=== PATIENT | male | born 1975 | race Caucasian/White ===

== ENCOUNTER 2021-01-22 16:28 | Emergency (ER) | payer BC, SELFPAY ==
[2021-01-22 16:51] LABS: Urine Blood Negative (Negative); Urine Glucose Negative (Negative); Urine Protein Negative (Negative); Urine Specific Gravity <=1.005 (1.005-1.030)
[2021-01-22 16:54] LABS: Basophils % 0.8 % (0-1.3); Hematocrit 50.5 % (39.6-49.0); Lymphocytes % 36.1 % (15.3-44.8); MPV 7.1 fL (7.6-11.3); RBC Red Blood Cell Count 5.51 M/uL (4.33-5.43)
[2021-01-22 17:01] LABS: Protime INR 0.98
[2021-01-22 17:04] LABS: Barbiturates NEGATIVE (NEGATIVE); Benzodiazepines NEGATIVE (NEGATIVE); Cocaine NEGATIVE (NEGATIVE); METHAMPHETAM NEGATIVE (NEGATIVE); Methadone NEGATIVE (NEGATIVE); Opiates NEGATIVE (NEGATIVE); Phencyclidine NEGATIVE (NEGATIVE); THC Cannibis NEGATIVE (NEGATIVE)
--- NOTE | 2021-01-22 17:09 | RAD REPORT ---
EXAM DESCRIPTION: CT - Head C Spine Mpr Wo Con - 01/22/2021 4:48 pm CLINICAL HISTORY: Head and neck injury status post fall. Head and neck pain COMPARISON: None. TECHNIQUE: Computed axial tomography of the head and cervical spine was obtained. Sagittal and coronal reconstruction was performed. All CT scans are performed using dose optimization technique as appropriate and may include automated exposure control or mA/KV adjustment according to patient size. FINDINGS: An intracranial bleed is not seen. The ventricles are normal in caliber. An extra-axial fl uid collection is not noted.Fluid within the visualized sinuses and mastoids is not seen. Mucus retention cyst left maxillary sinus A cervical fracture is not visualized. No dislocation is noted. Spondylosis involves the cervical spi ne IMPRESSION: No acute intracranial abnormality is seen. A cervical fracture is not visualized. If the patient continues to have symptoms to suggest intracra nial /spinal cord pathology then MRI would be recommended
[2021-01-22 17:18] LABS: ALT/SGPT 49 U/L (12-78); AST/SGOT 44 U/L (15-37); Albumin 3.9 g/dL (3.4-5.0); Alkaline Phosphatase 63 U/L (45-117); BUN Blood Urea Nitrogen 4 mg/dL (7-18); Bicarbonate 21 mmol/L (21-32); Bilirubin Direct 0.2 mg/dL (0-0.2); Bilirubin Total 0.5 mg/dL (0.2-1.0); Glucose Level 100 mg/dL (74-106); Potassium 3.8 mmol/L (3.5-5.1); Protein, Total 7.6 g/dL (6.4-8.2); Sodium Level 143 mmol/L (136-145)
--- NOTE | 2021-01-22 17:30 | ER ---
Nurse's Notes [facility] Name: Fran Ortiz Age: 46 yrs Sex: Male : 1975 Arrival Date: 01/22/2021 Time: 16:29 Bed 2 Private MD: Diagnosis: Presentation: 01/22 16:39 Chief complaint: EMS states: patients family called for a check on the patient. They ap3 were notified the patient had been sending text messages that do not make sense to the family. Patient reports that he fell down approx 15 concrete steps a month ago, and believes this is tied to that. Patient also reports to have had 4 large beers prior to arrival. Coronavirus screen: At this time, the client does not indicate any symptoms associated with coronavirus-19. Ebola Screen: No symptoms or risks identified at this time. Initial Sepsis Screen: Does the patient meet any 2 criteria? No. Patient's initial sepsis screen is negative. Does the patient have a suspected source of infection? No. Patient's initial sepsis screen is negative. Risk Assessment: Do you want to hurt yourself or someone else? Patient reports no desire to harm self or others. Onset of symptoms was January 19, 2021. 16:39 Method Of Arrival: EMS: [facility] ap3 16:39 Acuity: TIARA 3 ap3 Triage Assessment: 16:43 General: Appears in no apparent distress. Behavior is anxious, Smells of alcohol. Pain: ap3 Denies pain. EENT: Eyes glassy. Neuro: Level of Consciousness is awake, obeys commands, Oriented to person, place, time. Cardiovascular: Capillary refill < 3 seconds Patient's skin is warm and dry. Respiratory: Airway is patent Respiratory effort is even, unlabored, Respiratory pattern is regular, symmetrical. Historical: - Allergies: 16:42 No Known Allergies; ap3 - Home Meds: 16:42 None [Active]; ap3 - PMHx: 16:42 Hypertensive disorder; Anxiety; ap3 - Immunization history:: Client reports having NOT received the Covid vaccine. - Social history:: Smoking status: Patient reports the use of cigarette tobacco products, smokes one pack cigarettes per day. Patient uses alcohol, on a daily basis. claims drinking about a 6 pack/day. Screenin:44 Abuse screen: Denies threats or abuse. Nutritional screening: No deficits noted. ap3 Tuberculosis screening: No symptoms or risk factors identified. Fall Risk Fall in past 12 months (25 points). Secondary diagnosis (15 points) recent ETOH use. IV access (20 points). Ambulatory Aid- None/Bed Rest/Nurse Assist (0 pts). Gait- Impaired (20 pts.). Mental Status- Oriented to own ability (0 pts). Total Worley Fall Scale indicates High Risk Score (45 or more points). Fall prevention measures have been instituted. Side Rails Up X 2 Placed Close to Nursing Station Frequent Obs/Assessments Occuring As available patient and family educated on Fall Prevention Program and Strategies. Assessment: 17:30 Reassessment: patient was found to not be in the room upon nurses arrival to administer ap3 ordered medications. IV is noted to be intact on the bed. Also found was the patients ID on the bed. Charge nurse and provider notified. Ativan was not given. Full 2mg was wasted with YOLANDA Monzon as witness. Vital Signs: 16:39 BP 160 / 119; Pulse 112; Resp 18; Pulse Ox 99% on R/A; Weight 80.74 kg; Height 5 ft. 11 ap3 in. (180.34 cm); 16:39 Body Mass Index 24.83 (80.74 kg, 180.34 cm) ap3 ED Course: 16:29 Patient arrived in ED. am2 16:30 Antwan Martino PA is PHCP. cp 16:32 Iron Denson MD is Attending Physician. cp 16:39 Rylee Spears RN is Primary Nurse. ap3 16:41 Triage completed. ap3 16:41 Arm band placed on right wrist. Patient patient placed in [facility]-Color. ap3 16:[address] ap3 16:45 Patient has correct armband on for positive identification. Bed in low position. Call ap3 light in reach. Side rails up X2. Pulse ox on. NIBP on. Door closed. Noise minimized. 16:48 CT Head C Spine In Process Unspecified. EDMS Administered Medications: 16:58 Drug: NS 0.9% 1000 ml Route: IV; Rate: 1 bolus; Site: right forearm; ap3 Outcome: 17:29 Patient left the ED. ll1 Signatures: Dispatcher [employer] EDMS Antwan Martino PA PA cp Moreno, Amanda am2 Rylee Spears, RN RN ap3 Stephan Berumen RN RN ll1
[2021-01-22 17:42] VITALS: BP 160/119; O2SAT 99
[2021-01-22] MEDS ORDERED: NICOTINE 21 MG/PAT TD ONE (17:49)
[2021-01-22] MEDS ORDERED: LORazepam 2 MG/ML VIAL ONE (17:50)
--- NOTE | 2021-01-23 17:29 | EDPHYS ---
Physician Documentation [facility] Name: Fran Ortiz Age: 46 yrs Sex: Male : 1975 Arrival Date: 01/22/2021 Time: 16:29 Bed 2 Private MD: ED Physician Iron Denson HPI: 01/22 16:40 This 46 yrs old Male presents to ER via EMS with complaints of Fall Injury. cp 16:40 Details of fall: The patient fell from a height, down approximately 15 stairs. cp 16:40 Onset: The symptoms/episode began/occurred 1 month(s) ago. Associated injuries: The cp patient sustained neck injury, pain. Patient brought to ED by EMS after being called by family member who received texts from patient that reportedly did not make sense. Historical: - Allergies: 16:42 No Known Allergies; ap3 - Home Meds: 16:42 None [Active]; ap3 - PMHx: 16:42 Hypertensive disorder; Anxiety; ap3 - Immunization history:: Client reports having NOT received the Covid vaccine. - Social history:: Smoking status: Patient reports the use of cigarette tobacco products, smokes one pack cigarettes per day. Patient uses alcohol, on a daily basis. claims drinking about a 6 pack/day. ROS: 16:45 Neck: Positive for pain at rest. cp 16:45 Constitutional: Negative for body aches, chills, fever, poor PO intake. cp 16:45 Cardiovascular: Negative for chest pain. 16:45 Respiratory: Negative for cough, shortness of breath, wheezing. 16:45 Abdomen/GI: Negative for abdominal pain, nausea, vomiting, and diarrhea. 16:45 Back: Negative for pain at rest, pain with movement. 16:45 Neuro: Negative for altered mental status, headache, weakness. 16:45 All other systems are negative. Exam: 16:50 Constitutional: The patient appears in no acute distress, alert, awake, cp non-diaphoretic, non-toxic, well developed, well nourished, smells of alcohol, ETOH. 16:50 Head/Face: Normocephalic, atraumatic. cp 16:50 Eyes: Periorbital structures: appear normal, Pupils: equal, round, and reactive to light and accomodation, Extraocular movements: intact throughout, Conjunctiva: injected, bilaterally, Sclera: no appreciated abnormality, Lids and lashes: appear normal, bilaterally. 16:50 ENT: External ear(s): are unremarkable, Ear canal(s): are normal, clear, TM's: dullness, bilaterally, Nose: is normal, Mouth: Lips: moist, Oral mucosa: pink and intact, moist, Posterior pharynx: Airway: no evidence of obstruction, patent, Voice: is normal. 16:50 Neck: C-spine: C-collar placed in ED, vertebral tenderness, that is mild, appreciated at C4 and C5, crepitus, is not appreciated. 16:50 Chest/axilla: Inspection: normal, Palpation: is normal, no crepitus, no tenderness. 16:50 Cardiovascular: Rate: tachycardic, Rhythm: regular, Edema: is not appreciated, JVD: is not appreciated. 16:50 Respiratory: the patient does not display signs of respiratory distress, Respirations: normal, no use of accessory muscles, no retractions, labored breathing, is not present, Breath sounds: are clear throughout, no decreased breath sounds, no stridor, no wheezing. 16:50 Abdomen/GI: Inspection: abdomen appears normal, Bowel sounds: active, all quadrants, Palpation: abdomen is soft and non-tender, in all quadrants, rebound tenderness, is not appreciated, involuntary guarding, is not appreciated. 16:50 Back: vertebral tenderness, is not appreciated. 16:50 Skin: no rash present. 16:50 Neuro: Orientation: to person, place \T\ time. Mentation: is normal, Motor: moves all fours, strength is normal, Sensation: no obvious gross deficits. Vital Signs: 16:39 BP 160 / 119; Pulse 112; Resp 18; Pulse Ox 99% on R/A; Weight 80.74 kg; Height 5 ft. 11 ap3 in. (180.34 cm); 16:39 Body Mass Index 24.83 (80.74 kg, 180.34 cm) ap3 MDM: 16:34 Patient medically screened. cp 01/22 16:34 Order name: Acetaminophen; Complete Time: 17:22 cp 01/22 16:34 Order name: Basic Metabolic Panel; Complete Time: 17:22 cp 01/22 17:29 Interpretation: Normal except: CL 110; BUN 4. cp 01/22 16:34 Order name: CBC with Diff; Complete Time: 17:11 01/22 17:23 Interpretation: Normal except: RBC 5.51; HCT 50.5; MPV 7.1. 01/22 16:34 Order name: ETOH Level; Complete Time: 17:18 cp 01/22 17:21 Interpretation: ETOH 404; Reviewed. 01/22 16:34 Order name: Hepatic Function; Complete Time: 17:22 01/22 16:34 Order name: PT-INR; Complete Time: 17:29 cp 01/22 16:34 Order name: Ptt, Activated; Complete Time: 17:29 cp 01/22 16:34 Order name: Salicylate; Complete Time: 17:29 01/22 16:34 Order name: Urine Drug Screen; Complete Time: 17:11 01/22 17:30 Interpretation: Reviewed. 01/22 16:34 Order name: EKG; Complete Time: 16:34 cp 01/22 16:34 Order name: CT Head C Spine; Complete Time: 17:11 01/22 17:12 Interpretation: Reviewed report. 01/22 16:51 Order name: Urine Dipstick-Ancillary; Complete Time: 17:11 EDME 01/22 16:34 Order name: EKG - Nurse/Tech; Complete Time: 16:58 01/22 16:34 Order name: IV Saline Lock; Complete Time: 16:46 01/22 16:34 Order name: Labs collected and sent; Complete Time: 16:46 01/22 16:34 Order name: Suicide Screening ([place]); Complete Time: 16:46 cp Administered Medications: 16:58 Drug: NS 0.9% 1000 ml Route: IV; Rate: 1 bolus; Site: right forearm; ap3 Disposition Summary: 01/22/21 17:29 Eloped Disposition: after being seen by provider ll1 Reason: unknown ll1 Signatures: Dispatcher [employer] EDMS Antwan Martino PA PA cp Rylee Spears RN RN ap3 Stephan Berumen RN RN ll1
== END 2021-01-22 17:29 | disposition left against medical advice (07) ==
LOC: ER 16:28
DX: M54.2 Cervicalgia (principal); W10.9XXA Fall (on) (from) unspecified stairs and steps, initial encounter; I10 Essential (primary) hypertension; F17.210 Nicotine dependence, cigarettes, uncomplicated
CPT/HCPCS: 36415; 70450; 72125; 80048; 80076; 80307; 80320; 80329; 81003; 85025; 85610; 85730; 93005; 99284

== ENCOUNTER 2021-01-22 18:26 | Emergency (ER) | payer BC, SELFPAY ==
[2021-01-22] MEDS ORDERED: NA CHLORIDE 0.9% 0 ML ONE (20:25)
[2021-01-22] MEDS ORDERED: NA CHLORIDE 0.9% 1,000 ML ONE (20:56)
--- NOTE | 2021-01-22 22:34 | EDPHYS ---
Physician Documentation [facility] Name: Fran Ortiz Age: 46 yrs Sex: Male : 1975 Arrival Date: 01/22/2021 Time: 18:26 Bed 26 Private MD: ED Physician Mode Mckeon HPI: 01/22 19:25 This 46 yrs old Male presents to ER via Ambulatory with complaints of Head cp Injury-Adult. 19:25 The patient presents to the emergency department with a history of substance abuse, cp Type: beer. 19:25 Associated signs and symptoms: Pertinent positives; headache, substance abuse, neck cp pain, Pertinent negatives: abdominal pain, chest pain, fever, hallucinations, homicidal ideation. Patient returns to ED after eloping earlier today while significantly intoxicated. At previous visit patient reported to have fallen down stairs approximately 1 month ago. Historical: - Allergies: 18:34 No Known Allergies; vg1 - Home Meds: 18:34 None [Active]; vg1 - PMHx: 18:34 Anxiety; Hypertensive disorder; vg1 - PSHx: 18:34 None; vg1 - Immunization history:: Adult Immunizations up to date, Client reports receiving the Hector \T\ Hector single-dose vaccine. - Social history:: Smoking status: Patient reports the use of cigarette tobacco products, smokes one pack cigarettes per day. ROS: 19:30 Constitutional: Negative for body aches, chills, fever, poor PO intake. cp 19:30 Eyes: Negative for injury, pain, redness, and discharge. cp 19:30 ENT: Negative for ear pain, sore throat, difficulty swallowing, difficulty handling secretions. 19:30 Neck: Positive for pain at rest. 19:30 Cardiovascular: Negative for chest pain, edema, palpitations. 19:30 Respiratory: Negative for cough, shortness of breath, wheezing. 19:30 Abdomen/GI: Negative for abdominal pain, nausea, vomiting, and diarrhea. 19:30 Back: Negative for pain at rest, pain with movement. 19:30 Neuro: Negative for altered mental status, weakness. 19:30 Psych: Negative for auditory hallucinations, visual hallucinations, homicidal ideation, suicide gesture, suicidal ideation. 19:30 All other systems are negative. Exam: 19:33 Constitutional: The patient appears in no acute distress, alert, awake, cp non-diaphoretic, non-toxic, well developed, well nourished. 19:33 Head/Face: Normocephalic, atraumatic. cp 19:33 Eyes: Periorbital structures: appear normal, Pupils: equal, round, and reactive to light and accomodation, Extraocular movements: intact throughout, Conjunctiva: injected, bilaterally, Sclera: no appreciated abnormality, Lids and lashes: appear normal, bilaterally. 19:33 ENT: External ear(s): are unremarkable, Nose: is normal, Mouth: Lips: moist, Oral mucosa: moist, Posterior pharynx: Airway: no evidence of obstruction, patent. 19:33 Neck: ROM/movement: is normal, is supple, no range of motions limitations, no meningismus, no nuchal rigidity, pain, that is mild, with any movement. 19:33 Chest/axilla: Inspection: normal, Palpation: is normal, no crepitus, no tenderness. 19:33 Cardiovascular: Rate: tachycardic, Rhythm: regular, Edema: is not appreciated, JVD: is not appreciated. 19:33 Respiratory: the patient does not display signs of respiratory distress, Respirations: normal, no use of accessory muscles, no retractions, labored breathing, is not present, Breath sounds: are clear throughout, no decreased breath sounds, no stridor, no wheezing. 19:33 Abdomen/GI: Inspection: abdomen appears normal, Palpation: abdomen is soft and non-tender, in all quadrants. 19:33 Back: vertebral tenderness, is not appreciated. 19:33 Neuro: Orientation: to person, place \T\ time. Mentation: able to follow commands, slow to respond, Motor: moves all fours, strength is normal, Sensation: no obvious gross deficits. Vital Signs: 18:30 BP 143 / 110; Pulse 130; Resp 20; Temp 97.9; Pulse Ox 96% ; Weight 72.57 kg; Height 6 vg1 ft. 0 in. (182.88 cm); Pain 0/10; 20:30 BP 161 / 106; Pulse 112; Resp 20; Pulse Ox 98% ; Pain 0/10; dc2 21:30 BP 150 / 87; Pulse 79; Resp 20; Pulse Ox 97% ; Pain 0/10; dc2 22:25 BP 147 / 93; Pulse 98; Resp 18; Temp 98.0; Pain 0/10; dc2 18:30 Body Mass Index 21.70 (72.57 kg, 182.88 cm) vg1 [place] Coma Score: 18:30 Eye Response: spontaneous(4). Verbal Response: oriented(5). Motor Response: obeys vg1 commands(6). Total: 15. MDM: 19:22 Patient medically screened. cp 20:00 Differential diagnosis: depression, psychosis secondary to non-compliance, alcohol cp abuse, alcohol intoxication. 22:32 Data reviewed: vital signs, nurses notes, lab test result(s), EKG, radiologic studies, cp CT scan. 22:32 Counseling: I had a detailed discussion with the patient and/or guardian regarding: the cp historical points, exam findings, and any diagnostic results supporting the discharge/admit diagnosis, lab results, radiology results. Response to treatment: the patient's symptoms have markedly improved after treatment, patient is well hydrated. and as a result, I will discharge patient. ED course: VSS. Discussed results of labs, EKG and CT head/neck done at earlier visit today. Will discharge to home with family member for continued monitoring. 01/22 19:22 Order name: EKG; Complete Time: 19:22 cp 01/22 19:22 Order name: EKG - Nurse/Tech; Complete Time: 19:58 cp 01/22 19:22 Order name: IV; Complete Time: 19:59 cp 01/22 22:02 Order name: Vital Signs: please update cp Administered Medications: 20:34 Drug: NS 0.9% 1000 ml Route: IV; Rate: 1 bolus; Site: left antecubital; dc2 21:40 Follow up: IV Status: Completed infusion; IV Intake: 1000ml dc2 Disposition Summary: 01/22/21 22:33 Discharge Ordered Location: Home cp Problem: new cp Symptoms: have improved cp Condition: Stable cp Diagnosis - Alcohol abuse with intoxication cp - Cervicalgia cp Followup: cp - With: Private Physician - When: 1 - 2 days - Reason: Recheck today's complaints Discharge Instructions: - Discharge Summary Sheet cp - Alcohol Intoxication cp - Alcohol Abuse and Nutrition cp - Alcohol Abuse and Dependence Information, Adult cp Forms: - Medication Reconciliation Form cp - Thank You Letter cp - Antibiotic Education cp - Prescription Opioid Use cp Addendum: 01/25/2021 19:05 Co-signature as Attending Physician, Mode Mckeon MD. [facility] Signatures: Antwan Martino PA PA cp Garcia, Victoria, RN RN vg1 Mode Mckeon MD MD mh7 Bouchra Mcneal RN RN dc2
--- NOTE | 2021-01-22 22:34 | ER ---
Nurse's Notes [facility] Name: Fran Ortiz Age: 46 yrs Sex: Male : 1975 Arrival Date: 01/22/2021 Time: 18:26 Bed 26 Private MD: Diagnosis: Alcohol abuse with intoxication;Cervicalgia Presentation: 01/22 18:30 Chief complaint: Patient states: Fell down a flight of stairs about a month ago. "A vg1 couple of days ago I wasn't to cognitively function" Pt states NVD; blurred vision, headache, and dizziness. Coronavirus screen: Vaccine status: Patient reports receiving the 1st dose of the Covid vaccine. Client denies travel out of the [place] in the last 14 days. Ebola Screen: Patient negative for fever greater than or equal to 101.5 degrees Fahrenheit, and additional compatible Ebola Virus Disease symptoms. Mechanism of Injury: resulted from Fall from height greater than 5 stairs;. Initial Sepsis Screen: Does the patient meet any 2 criteria? No. Patient's initial sepsis screen is negative. Does the patient have a suspected source of infection? No. Patient's initial sepsis screen is negative. Risk Assessment: Do you want to hurt yourself or someone else? Patient reports no desire to harm self or others. Onset of symptoms was January 19, 2021. 18:30 Method Of Arrival: Ambulatory 1 18:30 Acuity: TIARA 3 vg1 Triage Assessment: 18:34 General: Appears in no apparent distress. uncomfortable, Behavior is cooperative, vg1 anxious. Pain: Denies pain. Neuro: Level of Consciousness is awake, alert, obeys commands, Oriented to person, place, time, situation, Reports blurred vision dizziness, headache. Historical: - Allergies: 18:34 No Known Allergies; vg1 - Home Meds: 18:34 None [Active]; vg1 - PMHx: 18:34 Anxiety; Hypertensive disorder; vg1 - PSHx: 18:34 None; vg1 - Immunization history:: Adult Immunizations up to date, Client reports receiving the Hector \\T\\ Hector single-dose vaccine. - Social history:: Smoking status: Patient reports the use of cigarette tobacco products, smokes one pack cigarettes per day. Screenin:20 Abuse screen: Denies threats or abuse. Denies injuries from another. Nutritional dc2 screening: No deficits noted. Tuberculosis screening: No symptoms or risk factors identified. Never had TB. Fall Risk None identified. No fall in past 12 months (0 pts). No secondary diagnosis (0 pts). No IV (0 pts). Ambulatory Aid- None/Bed Rest/Nurse Assist (0 pts). Gait- Normal/Bed Rest/Wheelchair (0 pts) Mental Status- Oriented to own ability (0 pts). Total Worley Fall Scale indicates No Risk (0-24 pts). Assessment: 19:20 General: Appears in no apparent distress. slender, Behavior is cooperative, anxious, dc2 restless, Smells of alcohol, Reports has been drinking some beers today, denies use of any drugs, is extremely anxious Reporting " I'm scard" .Uncle at side, attempt support. 19:20 Pain: Denies pain. Neuro: Reports blurred vision dizziness. Cardiovascular: Rhythm is dc2 sinus tachycardia. GI: No deficits noted. : No signs and/or symptoms were reported regarding the genitourinary system. Musculoskeletal: No deficits noted. 22:45 Reassessment: Pt being discharged, request to see MD before leaving. Provider made dc2 aware but discharge on hold for a few minutes. Vital Signs: 18:30 BP 143 / 110; Pulse 130; Resp 20; Temp 97.9; Pulse Ox 96% ; Weight 72.57 kg; Height 6 vg1 ft. 0 in. (182.88 cm); Pain 0/10; 20:30 BP 161 / 106; Pulse 112; Resp 20; Pulse Ox 98% ; Pain 0/10; dc2 21:30 BP 150 / 87; Pulse 79; Resp 20; Pulse Ox 97% ; Pain 0/10; dc2 22:25 BP 147 / 93; Pulse 98; Resp 18; Temp 98.0; Pain 0/10; dc2 18:30 Body Mass Index 21.70 (72.57 kg, 182.88 cm) vg1 [place] Coma Score: 18:30 Eye Response: spontaneous(4). Verbal Response: oriented(5). Motor Response: obeys vg1 commands(6). Total: 15. ED Course: 18:26 Patient arrived in ED. as 18:34 Triage completed. vg1 18:34 Arm band placed on. vg1 19:20 Patient has correct armband on for positive identification. Bed in low position. Call dc2 light in reach. Side rails up X 1. Adult w/ patient. security monitor on. Pulse ox on. NIBP on. Door closed. Lights dimmed. 19:21 Antwan Martino PA is PHCP. cp 19:21 Mode Mckeon MD is Attending Physician. cp 19:28 Bouchra Mcneal, RN is Primary Nurse. dc2 19:45 Inserted saline lock: 20 gauge antecubital area, using aseptic technique. Blood dc2 collected. 20:00 EKG done, by ED staff. dc2 20:22 No provider procedures requiring assistance completed. dc2 20:50 No apparent distress. dc2 20:50 Bed in low position. Call light in reach. Side rails up X 1. Adult w/ patient. Cardiac dc2 monitor on. Pulse ox on. NIBP on. Door closed. Lights dimmed. 21:50 Bed in low position. Call light in reach. Side rails up X 1. Door closed. dc2 22:58 IV discontinued, intact, bleeding controlled, No redness/swelling at site. Pressure dc2 dressing applied. Administered Medications: 20:34 Drug: NS 0.9% 1000 ml Route: IV; Rate: 1 bolus; Site: left antecubital; dc2 21:40 Follow up: IV Status: Completed infusion; IV Intake: 1000ml dc2 Intake: 21:40 IV: 1000ml; Total: 1000ml. dc2 Outcome: 22:33 Discharge ordered by . cp 22:58 Discharged to home ambulatory. dc2 22:58 Condition: stable 22:58 Discharge instructions given to patient, Demonstrated understanding of instructions. 22:59 Patient left the ED. dc2 Signatures: Judit Perera as Antwan Martino PA PA cp Bouchra Meyer, RN RN vg1 Bouchra Mcneal, YOLANDA RN dc2
[2021-01-22 23:09] VITALS: O2SAT 97
[2021-01-22 23:10] VITALS: BP 147/93; TEMP 98
== END 2021-01-22 22:59 | disposition home or self-care (01) ==
LOC: ER 18:26
DX: F10.129 Alcohol abuse with intoxication, unspecified (principal); I10 Essential (primary) hypertension; F17.210 Nicotine dependence, cigarettes, uncomplicated
CPT/HCPCS: 93005; 96360; 99284; J7030